=== PATIENT | female | born 1970 | race Caucasian/White ===

== ENCOUNTER 2022-08-26 08:00 | Observation (INO) | payer OTHER, MEDICAID, SELFPAY ==
[2022-08-26] VITALS (16 sets, daily range): BP systolic 124–156; BP diastolic 66–83; PULSE 74–92; RESP 12–20; TEMP 36–36.6; O2SAT 93–100; BMI 34.9; BMI 41.5
--- NOTE | 2022-08-26 | PATH_ITS ---
[facility] Accession Number: [id number] No. of containers..02 Tissue . 01 Material submitted: . PART A: CYST - LEFT TUBAL CYST PART B: fallopian tube - RIGHT FALLOPIAN TUBE AND PARTIAL OVARY . 01 Diagnosis: A. Left Tubal Cyst: Consistent with ovarian follicular cyst. Negative for significant atypia and malignancy. . B. Right Fallopian Tube and Partial Ovary: Fallopian tube with severe acute and chronic salpingitis, with associated mural edema and fibrosis. Fragments of fibroadipose tissue with suppurative inflammation (abscess formation) and fat necrosis. Negative for significant atypia and malignancy. [facility] 08/31/2022 1502 Local . 01 Comment: Definitive ovarian tissue is not identified in specimen B ( right fallopian tube and partial ovary). . 01 Electronically signed: . Cindy Holt MD, Pathologist NPI- [id number] . 01 Gross description: . A. Received in formalin, labeled with the patient's name and , designated left tubal cyst, and consists of a disrupted prince cystic structure measuring 1.2 x 0.7 x 0.5 cm. The external surface is inked blue. The internal surface is prince and smooth with no excrescences or thickening identified. The specimen averages 0.1 cm thick, is serially sectioned, and submitted entirely in cassette A1. B. Received in formalin, labeled with the patient's name and , designated right tube and partial ovary, and consists of multiple irregular prince, soft tissue fragments with no tubular structure or fimbriae grossly identified, aggregating to 7.2 x 4.2 x 1.5 cm. No discrete lesions or ovarian parenchyma are grossly identified. 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 ([id number]) /FRR 08/28/2022 1729 Local . 01 Pathologist provided ICD-10: N70.01 . 01 CPT . 362777, 422387 Specimen Comment: A courtesy copy of this report has been sent to [phone] Performed at: 01 [facility] [address] [place] [address], [place], [place] [id number] MD Saleem Rodriguez MD Phone: [phone]
--- NOTE | 2022-08-26 08:31 | DI.US.S_ITS ---
PROCEDURE: US PELVIC COMPLETE INDICATIONS: POSSIBLE RIGHT TUBO-OVARIAN ABSCESS TECHNIQUE: Real-time scanning was performed of the pelvic organs, with image documentation. Additional endovaginal scanning was necessary due to incomplete visualization of the adnexal and endometrial structures by transabdominal scanning. COMPARISON: [facility], RG, CT ABDOMEN/PELVIS WITH CONTRAST, 08/26/2022, 2:13. FINDINGS: Uterus: Uterus is anteverted and normal in size at 6.0 x 3.5 x 3.7 cm. The myometrium is homogeneous. The endometrium measures 7.2 mm combined thickness. Ovaries: Right ovary is not visualized. Left ovary measures 4.4 x 2.7 x 2.69 cm. Normal ovarian echotexture and vascularity. In the right adnexa, there is a tubular fluid collection measuring 6.6 x 3.5 x 3.9 cm Other: No pathologic free abdominal or pelvic fluid. IMPRESSION: Tubular fluid collection the right adnexa consistent with tubal ovarian abscess corresponding with the prior CT findings. Approved by: Ministerio Vargas M.D. on 08/26/2022 at 10:14
--- NOTE | 2022-08-26 08:42 | ED.FEMALEGU ---
HPI - Female Genitourinary General Chief complaint: Urogenital-Female Stated complaint: sent from [place] ED/pelvic abcess Time Seen by Provider: 08/26/22 08:09 Source: patient Mode of arrival: Ambulatory History of Present Illness HPI Narrative: Patient is a 52-year-old female last menstrual period greater than 12 months ago presenting today from [place] [facility] concern for possible right-sided tubo-ovarian abscess. Patient reports that she is had some lower abdominal pain slightly worse on the right for the last 2-3 days with fever and chills. She also noted Soma bright red blood after bowel movements. She is no prior history of diverticulitis. No recent sexual activity or concern for STDs. Pelvic exam was done at the other emergency department along with blood work. She was found to have leukocytosis 12.9 urinalysis showed 4+ bacteria with Trichomonas negative for nitrates positive for leukocytes potassium was found to be slightly low at 3.2 but no evidence of CAR or other electrolyte abnormalities. She was sent here POV she is hemodynamically stable. She did have a CT with contrast over there which is now loaded into our system. Did recommend an ultrasound. They do not have ultrasound capabilities. She is offered pain medication at this time but declines. Related Data Allergies Allergy/AdvReac Type Severity Reaction Status Date / Time No Known Drug Allergies Allergy Verified 08/26/22 08:19 Review of Systems Review of Systems ROS Unobtainable: All systems reviewed & are unremarkable except as noted in HPI and below Patient History Medical History FHx: cholecystectomy Surgical History History of cholecystectomy alcohol intake frequency: 0-2 drinks per day Substance Use Type: does not use Exam Initial Vital Signs Initial Vital Signs: Vital Signs Pulse Rate 85 08/26/22 08:10 Respiratory Rate 16 08/26/22 08:10 Blood Pressure 156/83 H 08/26/22 08:10 Pulse Oximetry 93 08/26/22 08:10 Oxygen Delivery Method Room Air 08/26/22 08:10 GENERAL: Alert 52-year-old female appears mildly but no acute distress and in no acute distress. HEENT: Head atraumatic,EOMI, pupils reactive, face symmetric, moist mucous membranes CARDIOVASCULAR: Regular rate and rhythm without murmurs, rubs or gallops. RESPIRATORY: Breath sounds equal bilaterally, no wheezes rales or rhonchi. ABDOMEN: Soft, suprapubic pain slightly more to the right than the left no guarding no rebound no upper EXTREMITIES: Normal range of motion, no clubbing or edema. Neurovascularly intact NEUROLOGICAL: Alert and oriented x4 SKIN: Warm, dry, no laceration, no petechiae, no rashes or lesions. Course Orders Ordered: ED Orders 08/26/22 08:31 US pelvic complete Stat Discontinued Medications Ketorolac Tromethamine (Ketorolac 30 Mg/Ml Vial) 15 mg IV NOW ONE Stop: 08/26/22 11:38 Last Admin: 08/26/22 11:51 Dose: 15 mg Documented By: ADAM Morphine Sulfate (Morphine 2 Mg/Ml Inj) 2 mg IV NOW ONE Stop: 08/26/22 11:38 Last Admin: 08/26/22 11:51 Dose: 2 mg Documented By: ADAM Vital Signs Vital signs: Vital Signs - 8 hr 08/26/22 08:13 08/26/22 08:10 08/26/22 08:10 Temperature 97.4 F L Pulse Rate 86 85 Respiratory Rate 16 16 Blood Pressure 156/83 H 156/83 H Pulse Oximetry 94 93 Oxygen Delivery Method Room Air Room Air 08/26/22 08:30 08/26/22 08:44 08/26/22 08:44 Temperature Pulse Rate 76 76 Respiratory Rate Blood Pressure 139/68 Pulse Oximetry 100 100 Oxygen Delivery Method 08/26/22 09:00 Temperature Pulse Rate 86 Respiratory Rate Blood Pressure Pulse Oximetry 100 Oxygen Delivery Method MDM - Female Genitourinary Imaging Data US - TEXTILE EXAMINER: Radiologist's Impression: PROCEDURE:? US PELVIC COMPLETE ? INDICATIONS:? POSSIBLE RIGHT TUBO-OVARIAN ABSCESS ? TECHNIQUE:? Real-time scanning was performed of the pelvic organs, with image documentation.? Additional endovaginal scanning was necessary due to incomplete visualization of the adnexal and endometrial structures by transabdominal scanning.? ? COMPARISON:? [facility], , CT ABDOMEN/PELVIS WITH CONTRAST, 08/26/2022, 2:13. ? FINDINGS:? ?? Uterus:? Uterus is anteverted and normal in size at 6.0 x 3.5 x 3.7 cm. The myometrium is homogeneous. ? The endometrium measures 7.2 mm combined thickness.? ? Ovaries:? Right ovary is not visualized.? Left ovary measures 4.4 x 2.7 x 2.69 cm.? Normal ovarian echotexture and vascularity.? In the right adnexa, there is a tubular fluid collection measuring 6.6 x 3.5 x 3.9 cm ? Other:? No pathologic free abdominal or pelvic fluid. ? ? IMPRESSION:? ? Tubular fluid collection the right adnexa consistent with tubal ovarian abscess corresponding with the prior CT findings. ? ? Approved by: Ministerio Vargas M.D. on 08/26/2022 at 10:14? [facility] Narrative Medical decision making narrative: Patient 52-year-old female here for concern for tubo-ovarian abscess. She had blood work and CT done previously CT is now been loaded onto our system I have spoken with Radiology who was concern for possible tubo-ovarian abscess. Ultrasound does confirm probable tubo-ovarian abscess. Patient is hemodynamically stable she received Rocephin Flagyl and doxy at around 5:00 a.m.. Not yet due for 2nd dose of antibiotics. Dr. Carlson contacted in regards to abscess. She agrees to admission Discharge Plan Departure Patient Disposition: Admitted As Inpatient Clinical Impression: Right tubo-ovarian abscess Admit Date/Time: 08/26/22 11:20 Admit Provider: Janet Carlson
[2022-08-26] MEDS: MORPHINE 2 MG/ML INJ IV (11:51)
[2022-08-26] MEDS: KETOROLAC 30 MG/ML VIAL 15 MG IV (11:51)
[2022-08-26 12:42] LABS: COVID19 -Nasal RAPID Negative (Negative)
--- NOTE | 2022-08-26 13:31 | PM.GYNHP.1 ---
History of Present Illness History of Present Illness Reason for admission: pelvic inflammatory disease (Right tubo-ovarian abscess) Narrative: Martha Sanchez is a 52 year old female who presented to the emergency room with evaluation showing right tubo-ovarian abscess [facility] Medical History FHx: cholecystectomy Surgical History History of cholecystectomy Social History household members: significant other Smoking Status: Current every day smoker alcohol intake: current Meds Home Medications and Allergies Allergies Allergy/AdvReac Type Severity Reaction Status Date / Time No Known Drug Allergies Allergy Verified 08/26/22 08:19 Review of Systems Review of Systems Narrative: Patient states that she began having right lower quadrant pain for the last 2-3 days. The pain increased with bowel movements which were otherwise normal. She has some increased frequency of urination. She denies any significant fevers. She is perimenopausal for about a year with just occasional spotting. Patient denies headaches. No shortness of breath or chest pain. Exam Vital Signs (past 8 hours): - 08/26/22 08:13 08/26/22 08:10 08/26/22 08:10 Temperature 97.4 F L Pulse Rate 86 85 Respiratory Rate 16 16 Blood Pressure 156/83 H 156/83 H Pulse Oximetry 94 93 Oxygen Delivery Method Room Air Room Air 08/26/22 08:30 08/26/22 08:44 08/26/22 08:44 Temperature Pulse Rate 76 76 Respiratory Rate Blood Pressure 139/68 Pulse Oximetry 100 100 Oxygen Delivery Method 08/26/22 09:00 08/26/22 11:38 08/26/22 11:39 Temperature Pulse Rate 86 85 Respiratory Rate 20 Blood Pressure 136/79 Pulse Oximetry 100 100 Oxygen Delivery Method 08/26/22 11:39 Temperature Pulse Rate 85 Respiratory Rate Blood Pressure Pulse Oximetry 100 Oxygen Delivery Method Oxygen Delivery Method Room Air Narrative Exam Narrative: HEENT exam within normal limits. Lungs are clear to auscultation percussion. Heart is regular rate and rhythm no S3-S4 or murmurs. No thyromegaly. Abdomen is soft with tenderness in the right lower quadrant without rebound. Extremities without edema and nontender. Objective Imaging US - abdomen: Radiologist's impression: ROCEDURE:? US PELVIC COMPLETE ? INDICATIONS:? POSSIBLE RIGHT TUBO-OVARIAN ABSCESS ? TECHNIQUE:? Real-time scanning was performed of the pelvic organs, with image documentation.? Additional endovaginal scanning was necessary due to incomplete visualization of the adnexal and endometrial structures by transabdominal scanning.? ? COMPARISON:? [facility], [place], CT ABDOMEN/PELVIS WITH CONTRAST, 08/26/2022, 2:13. ? FINDINGS:? ?? Uterus:? Uterus is anteverted and normal in size at 6.0 x 3.5 x 3.7 cm. The myometrium is homogeneous. ? The endometrium measures 7.2 mm combined thickness.? ? Ovaries:? Right ovary is not visualized.? Left ovary measures 4.4 x 2.7 x 2.69 cm.? Normal ovarian echotexture and vascularity.? In the right adnexa, there is a tubular fluid collection measuring 6.6 x 3.5 x 3.9 cm ? Other:? No pathologic free abdominal or pelvic fluid. ? ? IMPRESSION:? ? Tubular fluid collection the right adnexa consistent with tubal ovarian abscess corresponding with the prior CT findings. Labs Labs: Laboratory Results - last 24 hr 08/26/22 12:25 SARS-CoV-2 (PCR) Negative Assessment & Plan Assessment and plan (1) Right tubo-ovarian abscess: Status: Acute Assessment & Plan narrative: Patient with right tubo-ovarian abscess. Patient was given options for antibiotic treatment verses surgical management. Patient is requesting laparoscopic RSO. Consent form reviewed with the patient. Risk of reaction to medication or anesthesia, damage to internal structures such as bowel, bladder, ureter that could require opening the abdomen to repair or additional surgery. Risk needing to open the abdomen to complete surgery. Risk of infection. Risk of bleeding enough to require blood transfusion which she is okay with if necessary to save her life. Consent form signed and questions answered. COVID-19 COVID-19 status: Result pending Time Spent With Patient Time with patient: less than 30 minutes Quality VTE Deep Vein Thrombosis/Pulmonary Embolism Present on Admission: No
[2022-08-26] MEDS: CEFAZOLIN 2 GM/100 ML PREMIX 100 ML IV ×2 (14:13→16:25)
[2022-08-26] MEDS: LACTATED RINGERS 1,000 ML 100 ML IV ×2 (14:13→18:24)
--- NOTE | 2022-08-26 15:55 | SUR.OPER ---
Lithotomy on padded OR bed, head on pillow, arms secured on padded arm boards at <90 degrees abduction. Legs secured in padded yellow fins stirrups.
--- NOTE | 2022-08-26 16:04 | PM.PREOP ---
Pre-operative Note COVID-19 COVID-19 status: Negative Result date/Date tested (Pos, Neg/Pending): 08/26/22 Criteria for continued procedure: Possibility delay results in more complex future surgery or treatment Interval Note History & Physical reviewed/Exam performed by Physician: Yes Changes to H&P: No
[2022-08-26] MEDS: BUPIVACAINE 0.5% (PF) 10 ML VIAL SUBCUT (16:42)
[2022-08-26] MEDS: LACTATED RINGERS 1,000 ML 42 ML IV (17:02)
--- NOTE | 2022-08-26 18:03 | P.OP_ITS ---
Operative Date/Time/Diagnoses Date of procedure: 08/26/22 Time of procedure: 18:03 Pre-op diagnosis: Right tubo-ovarian abscess Post-op diagnosis: same Procedure & Clinicians Procedure: Laparoscopic right salpingectomy with partial right oophorectomy. Biopsy of left paratubal cyst. Drainage of abscess and copious irrigation of abdomen Same procedure as scheduled: Yes Indications: Right tubo-ovarian abscess Surgeon: Janet Carlson Click Yes if Unassisted: Yes Anesthesia Type: General Operative Notes Findings: Right tubo-ovarian abscess. Left paratubal cyst. Mild adhesions of the omentum to the anterior abdominal wall in the area of the prior cholecystectomy. Normal-appearing ovaries and uterus. Closure Type: primary Specimen(s): other (Right tube and partial right ovary, left paratubal cyst biopsy, culture of abscess) Estimated Blood Loss (mL): 25 Blood products transfused: none Procedure in detail: Patient was brought to the operating room where she underwent general anesthesia. She was placed in low [facility] stirrups and prepped and draped in usual sterile fashion. 2 g of Ancef were in prior to beginning of the case. Pulsatile stockings were in place and functional. Warming was with blankets. A single-tooth tenaculum was placed on the anterior lip of the cervix and the cervix dilated to #6 Hegar dilator. The Zumi uterine manipulator was placed and balloon inflated with 3 mL of air. The area of the incisions were injected with half percent Marcaine with epinephrine. An incision was made in the umbilicus with a scalpel and the Verres needle placed in the abdomen. Confirmation of correct placement of the needle was performed by withdrawing on the syringe and then allowing fluid to fall freely through the needle. The abdomen was insufflated to 4 L of CO2. A 5 mm trocar was placed under direct visualization. 2 other 5 mm trochars were placed in the right and left lower quadrant under direct visualization after incising the skin. There did not appear to be any damage with placement of the trocars. Blunt dissection and hydrodissection were performed to free as much as of fallopian tube as possible. An abscess was broken into and irrigated after the pus was sent for cultures. The right fallopian tube was grasped and removed by cauterizing and cutting the mesosalpinx and across the fallopian tube at the junction with the uterus with the PK generator. Some of the remaining fallopian tube was adhered significantly to the descending colon and was left in place. Some of the right ovary was left in place. A left paratubal cyst was biopsied. A suprapubic 11 mm trocar was placed under direct visualization. An Endo-Catch bag was placed in the abdomen and the tube and partial right ovary were placed into the Endo- Catch bag and removed. The abdomen was irrigated copiously. Adequate hemostas is was noted. The CO2 was allowed to escape from the abdomen. The trochars were removed. A 0 Vicryl suture was placed in fascia of the suprapubic incision. Skin was closed with 4-0 monocryl. The patient went to recovery room in good condition. Complications: none Post-operative Condition: stable Disposition: Acute Care Plan for aftercare: Continue IV antibiotics. If patient stable home tomorrow on oral antibiotics.
[2022-08-26] MEDS: OXYCODONE IR 5 MG TABLET PO (18:08)
[2022-08-26] MEDS: KETOROLAC 30 MG/ML VIAL IV (18:35)
[2022-08-26] MEDS: metroNIDAZOLE 500 MG TABLET PO (21:10)
[2022-08-26] MEDS: DOCUSATE 100 MG CAPSULE 200 MG PO (21:10)
[2022-08-26] MEDS: DOXYCYCLINE HYCLATE 100 MG TABLET PO (21:10)
[2022-08-27 00:40] VITALS: BP 123/79; PULSE 83; RESP 18; TEMP 36.4; O2SAT 94
[2022-08-27 04:36] VITALS: BP 111/71; PULSE 94; RESP 19; TEMP 36.3; O2SAT 95
[2022-08-27] MEDS: cefTRIAXone 1,000 MG in SODIUM CHLORIDE 0.9% 100 ML 200 MG IV (05:16)
[2022-08-27] MEDS: KETOROLAC 30 MG/ML VIAL IV ×2 (05:42→11:21)
[2022-08-27 05:48] LABS: Add Manual Diff / Slide Review NO; Basophils Absolute Auto 100 /uL (0-100); Basophils Percent Auto 0.3 % (0-2); Eosinophils Absolute Auto 0 /uL (0-450); Eosinophils Percent Auto 0.2 % (2-4); Hematocrit 35.2 % (36-46); Lymphocytes Absolute Auto 800 /uL (1100-4500); Lymphocytes Percent Auto 4.6 % (25-40); Mean Corpuscular Hemoglobin 29.5 PG (26-34); Mean Corpuscular Volume 86.9 fL (80-100); Monocytes Absolute Auto 600 /uL (0-900); Monocytes Percent Auto 3.8 % (3-14); Neutrophils Absolute Auto 15200 /uL (1500-7000); Neutrophils Percent Auto 91.1 % (50-75); Platelet Count 257 X10^3/uL (150-400); Red Blood Cell Count 4.05 X10^6/uL (4.0-5.2); Red Cell Distribution Width 13.5 % (11.6-14.8); White Blood Cell Count 16.6 X10^3/uL (4.5-11.0)
[2022-08-27 08:26] VITALS: O2SAT 97
[2022-08-27 08:30] VITALS: BP 115/69; PULSE 90; RESP 18; TEMP 36.6; O2SAT 96
[2022-08-27] MEDS: metroNIDAZOLE 500 MG TABLET PO (08:35)
[2022-08-27] MEDS: DOXYCYCLINE HYCLATE 100 MG TABLET PO (08:35)
[2022-08-27] MEDS: DOCUSATE 100 MG CAPSULE 200 MG PO (08:35)
--- NOTE | 2022-08-27 08:47 | PM.DS.1 ---
History of Present Illness History of Present Illness Date Patient Seen: 08/27/22 Time Patient Seen: 08:00 Chief complaint: sent from [place] ED/pelvic abcess Narrative: Tubo-ovarian abscess Discharge Providers Provider Date of admission: 08/26/22 11:20 Discharge Date: 08/27/22 Primary care physician: Doctor Walker MD Discharge provider: Janet Carlson MD Summary Hospital Course Discharge Diagnosis: Right sided tubo-ovarian abscess Hospital Course: Patient was admitted from the emergency room for diagnosis right-sided tubo-ovarian abscess. She underwent laparoscopy with removal the right fallopian tube partial right ovary and drainage of abscess. She did well post operatively. Her pain was markedly improved. She was afebrile. She was discharged home with oral antibiotics. Status at Discharge Cognitive/behavioral status at discharge: oriented Functional status at discharge: independent ambulation Overall status at discharge: patient is progressing back to baseline Time Spent with Patient Time spent: Less than 30 minutes Exam Vital Signs (past 8 hours): - 08/27/22 04:36 08/27/22 08:26 08/27/22 08:30 Temperature 97.3 F L 97.9 F Pulse Rate 94 H 90 Respiratory Rate 19 18 Blood Pressure 111/71 115/69 Pulse Oximetry 95 97 96 Oxygen Delivery Method Room Air Oxygen Flow Rate 0 0 Oxygen Delivery Method Room Air Oxygen Flow Rate 0 Narrative Exam Narrative: Patient's abdomen is soft with minimal tenderness. Dressings are clean, dry, intact. Extremities without edema and nontender. Objective Labs 08/27/22 05:24 Labs: Laboratory Results - last 24 hr 08/26/22 08/27/22 12:25 05:24 WBC 16.6 H RBC 4.05 Hgb 12.0 Hct 35.2 L MCV 86.9 MCH 29.5 MCHC 34.0 RDW 13.5 Plt Count 257 Neut % (Auto) 91.1 H Lymph % (Auto) 4.6 L [place] % (Auto) 3.8 Eos % (Auto) 0.2 L Baso % (Auto) 0.3 Neut # (Auto) 66580 H Lymph # (Auto) 800 L [place] # (Auto) 600 Eos # (Auto) 0 Baso # (Auto) 100 SARS-CoV-2 (PCR) Negative [facility] Medical History FHx: cholecystectomy Surgical History History of cholecystectomy Social History household members: significant other Smoking Status: Current every day smoker alcohol intake: current Discharge Assessment & Plan Assessment and Plan Assessment: Patient with tubo-ovarian abscess in the right side status post laparoscopic right salpingectomy, right partial oophorectomy and drainage of abscess. Plan of Treatment: She was discharged home on 2 weeks of doxycycline and Flagyl. Patient is urged to schedule colonoscopy to make sure that this abscess was not from a ruptured diverticuli. Patient will follow-up in 2 weeks to see my partner Dr. Blue. Precautions to call for fevers, increased pain, any concerns. Discharge Plan Discharge Plan Patient Disposition: Home Discharge orders & Medications Prescriptions: New metronidazole 500 mg Tablet 500 mg PO BID Qty: 26 0RF doxycycline hyclate 100 mg Tablet 100 mg PO BID Qty: 26 0RF oxycodone 5 mg Tablet 5 mg PO Q4HR PRN (Reason: Pain, Moderate (4-6)) Qty: 20 0RF ibuprofen 600 mg tablet 600 mg PO Q6H PRN (Reason: pain) Qty: 20 0RF docusate sodium 250 mg capsule 250 mg PO BID PRN (Reason: Prevent constipation) Qty: 20 0RF Follow up/Referrals: Doctor Cardoso MD [Primary Care Provider] - Torres Blue MD [Physician] - 2 Weeks (postop appointment) Activity Restrictions/Additional Instructions: Do not drive within 4 hours of taking narcotic pain medicine Diet/Activity/Treatments Diet: Regular Skin/Wound/Dressing Care Report to your healthcare provider any signs of infection, such as:: chills, fever, increased pain and unusual redness Dressing: May remove Band-Aids today. Leave Steri-Strips in place. Can get wet just pat dry. After 1 week get wet and rub off Visit Report/Discharge Packet Instructions: DI for Laparoscopy, DI for Prescription Opioid Use Stand Alone Forms: Patient Portal/API Discharge Data Primary Care Provider: Doctor Walker Quality VTE Deep Vein Thrombosis/Pulmonary Embolism Present on Admission: No
--- NOTE | 2022-08-27 12:08 | CM.DANOTE ---
Patient is a 52 yo female who was admitted on 08/26/22 for Pelvic Abcess. Pt was Self Pay when admitted for AD Counselors able to confirm pt qualifies for [employer] and chose [employer] and will have coverage for her hospital stay. Pt not established with PCP at this time but goes to the health clinic on Tue. EMR was reviewed. Per [employer] DEVELOPER, pt medically stable to d/c home today. Per RN, no concerns at this time, pt resting comfortably. SW met bedside with pt and explained role and she confirms she lives on Tuesday and has Sig Other available for assist and is independent with ADL's at baseline. 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 Pt thankful she qualified for [employer]. Pt states her friend will provide transport back to [facility] but is currently up in [place] for her own medical appointment and will be back bedside around lunchtime to provide transport. Pt does not anticipate any needs at d/c and agreeable with discharge home today. Plan: Patient to d/c home today via friend POV back to [facility] and outpt f/u. No SW needs at this time. MANA Flores Discharge Planning/Care Management CM Discharge Assessment Start: 08/27/22 12:06 Freq: Status: Active Protocol: Document 08/27/22 12:06 (Rec: 08/27/22 12:08 [email or web address]) Discharge Planning Assessment Assigned Live In Housekeeper MANA Gibbons DPOA/Assigned Designee Name Sig Other informally Advance Directives? No Advance Directives on File No History Provided By Patient,Medical Record Has Patient been admitted in last 30 No days? Prior Living Arrangements House Household Members significant other Type of transporation used prior to Drives own vehicle admit Independent with ADL's Yes Is patient alert and oriented? Yes Caregiver for Another No Barriers to Discharge No Discharge Plan Home Transportation Arrangement Friend to transport this afternoon back to [facility] Referrals Initiated None needed Whiteboard Updated in Patient Room with Yes name and ext. # of Live In Housekeeper Review Status In Process Please Provide Date Initial DC 08/27/22 Assessment Was Performed Next Review Type Continued Stay Review
--- NOTE | 2022-08-27 13:42 | PC.NURSE ---
Day shift: Paperwork signed and all questions answered. MD scripts sent electronic to Pt's pharmacy on [facility]. Left unit at approx [phone] via WC. Taken by MATTHEW Chamorro. Pt's friend is driving her home. They have the [employer] pass as well. Pt has all personal belongings.
== END 2022-08-27 13:44 | disposition home or self-care (01) ==
LOC: ED 11:19 → AC 12:03
PROVIDERS: Admitting Provider Specialist; Emergency Provider Emergency Medicine; PCP Physician Assistant Medical; Referring Provider Emergency Medicine; Visit Provider Specialist
PROC: (CPT 58661; principal; 2022-08-26 16:30)
DX: N70.93 Salpingitis and oophoritis, unspecified (principal); N83.8 Other noninflammatory disorders of ovary, fallopian tube and broad ligament; K66.0 Peritoneal adhesions (postprocedural) (postinfection); Z20.822 Contact with and (suspected) exposure to COVID-19
CPT/HCPCS: 58661; 36415; 76830; 76856; 85025; 87070; 87075; 87077; 87147; 87205; 87635; 96365; 96375; 96376; 99283; 99284; C9803; G0378; J0690; J0696; J1100; J1885; J2250; J2270; J2405; J2704; J3010